=== PATIENT | female | born 1950 | race Caucasian/White ===

== ENCOUNTER → 2024-05-11 | Outpatient (CLI) | payer MEDICARE, OTHER, SELFPAY ==
--- NOTE | 2024-05-11 14:40 | CT_ITS ---
PROCEDURE: EXTREMITY LOWER WITHOUT CONTRA REASON FOR EXAM: [facility] protocol for templating for right total-knee arthroplasty. TECHNIQUE: Multiple axial tomographic images of the right hip joint, right knee joint and right ankle joints were obtained. Coronal and sagittal reconstruction was obtained as well. COMPARISON: None. FINDINGS: Bones: No evidence of fracture. Joints: Imaging of the right hip joint was obtained. Moderate degree of joint space narrowing especially along the superior posterior aspect of the hip joint. Imaging of the knee joint was obtained. Marked degree of joint space narrowing involving the medial compartment of the knee joint. Degenerative spondylosis seen along the medial and lateral femoral condyles as well as medial and lateral tibial plateaus. Marked degree of joint space narrowing and osteoarthritis of the patellofemoral joint with degenerative spur formation. Imaging of the ankle joint was performed. No abnormality is seen. Soft Tissues: Small knee joint effusion. CT/Extremity Lower without Contra IMPRESSION: Marked degree of joint space narrowing involving the medial compartment of the knee joint as well as the patellofemoral joint. Small joint effusion. One or more dose reduction techniques were used (e.g., Automated exposure contr ol, adjustment of the mA and/or kV according to patient size, use of iterative reconstruction technique). Reading Location: [facility]
== END | disposition home or self-care (01) ==
LOC: CT 14:31
PROVIDERS: Referring Provider Orthopaedic Surgery; Visit Provider Orthopaedic Surgery
DX: M17.11 Unilateral primary osteoarthritis, right knee (principal)
CPT/HCPCS: 73700

== ENCOUNTER 2024-05-26 13:29 | Inpatient (IN) | payer MEDICARE, OTHER, SELFPAY ==
--- NOTE | 2024-05-12 18:11 | PAT.ANESEVAL ---
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 When Was Last Pacemaker Check QUESTION #4 FULL TEXT: You/Your Family Experience fever (hyperthermia) with Anesthesia Last Oral Intake Last Oral intake: Last Oral Intake NPO since Meds taken in AM with sips of water? 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 specialist: PONV - green promotions specialist Female Yes 05/12/24 08:08 HX of Motion Sickness No 05/12/24 08:08 HX of N/V After Surgery No 05/12/24 08:08 Non-Smoker Yes 05/12/24 08:08 Duration of Surgery greater Yes 05/12/24 08:08 than 60 minutes Number of Risk Factors 3 05/12/24 08:08 PONV Score Moderate Risk 05/12/24 08:08 Height & Weight Height & Weight: Anesthesia: Height & Weight Height 5 ft 7 in 04/06/24 08:50 Respiratory Assessment Respiratory Assessment - green promotions specialist: Respiratory Tract Infection Hx - green promotions specialist Hx Respiratory Tract Infection No 05/12/24 08:08 STOP Sleep Apnea STOP Sleep Apnea - green promotions specialist: STOP Sleep Apnea - green promotions specialist Hx Hypertension Yes: PER PT, CONTROLLED ON 05/12/24 08:08 MEDS Hx Sleep Apnea No 05/12/24 08:08 CPAP BIPAP Do you snore loudly (louder Yes 05/12/24 08:08 than talking or can be heard Do you often feel tired/ No 05/12/24 08:08 fatigued/ sleepy during daytime? Has anyone observed you stop No 05/12/24 08:08 breathing during sleep? STOP Results Positive 05/12/24 08:08 QUESTION #5 FULL TEXT : Do you snore loudly (louder than talking or can be heard through closed doors)? 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 Specify any problems Hx of Preganancy in last 3 No 05/12/24 08:08 Months Nurse Filling Out Transfusion MGRIFFITH 05/12/24 08:08 & Questions: Date: 05/12/24 05/12/24 08:08 Time: 08:10 05/12/24 08:08 Patient unable to answer at this time (ie. 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 History - green promotions specialist: /Reproductive Hx- green promotions specialist Hx Now Gestational Age (in weeks): EDC: Hx Hx Para Hx Section SAB PFSH Medical History (Updated 05/12/24 @ 08:20 by Christina Barrios) Wears glasses Wears partial dentures Depression Anxiety Alcohol use History of steroid therapy Dietary restriction Former smoker History of echocardiogram HTN (hypertension) Hypercholesteremia Diabetes mellitus CLL (chronic lymphocytic leukemia) Home Medications ?Medication ?Instructions ?Recorded ?Last Taken ?Type alprazolam 0.25 mg tablet (Xanax) 0.25 mg PO BID ANXIETY 04/06/24 Unknown History bupropion HCl 300 mg 24 hr tablet, 300 mg PO QAM MOOD 04/06/24 Unknown History extended release celecoxib 200 mg capsule (Celebrex) 200 mg PO QDAY ANTIINFLAMATORY 04/06/24 Unknown History cholecalciferol (vitamin D3) 25 25 mcg PO QDAY SUPPELEMENT 04/06/24 Unknown History mcg (1,000 unit) capsule cyanocobalamin (vitamin B-12) 100 mcg IM QMONTH SUPPLEMENT 04/06/24 Unknown History 1,000 mcg/mL injection solution empagliflozin 10 mg tablet 10 mg PO QAM DIABETES 04/06/24 Unknown History (Jardiance) hydrochlorothiazide 12.5 mg capsule 12.5 mg PO QDAY BLD PRESSURE 04/06/24 Unknown History lisinopril 40 mg tablet 40 mg PO QDAY BLOOD PRESSURE 04/06/24 Unknown History paroxetine HCl 40 mg tablet 40 mg PO QDAY MOOD 04/06/24 Unknown History semaglutide 0.25 mg or 0.5 mg (2 0.5 mg subcut WE DIABETES 04/06/24 Unknown History mg/3 mL) subcutaneous pen injector (Ozempic) atorvastatin 80 mg tablet 80 mg PO DAILY CHOLESTEROL 05/12/24 Unknown History Allergy/AdvReac Type Severity Reaction Status Date / Time No Known Allergies Allergy Verified 05/12/24 08:01 Surgical History (Updated 05/12/24 @ 08:08 by Christina Barrios) History of tonsillectomy History of colonoscopy History of tubal ligation S/P complete hysterectomy History of right shoulder replacement Social History Smoking Status: Former smoker alcohol intake: never Audit: Pertinent Findings Current Visit Impressions Current Visit Impressions: Hold Jardiance and ozempic as per guidelines. Recommendation Anesthesia Recommendation Anesthesia recommendation: F/U recommended (I do not see any outside records. I looked but there is no PAT Scanned Documents or Pre-Anesthesia Evaluation with scanned documents. )
--- NOTE | 2024-05-14 11:03 | EKG12_ITS ---
Test Reason : PREOP Blood Pressure : */* mmHG Vent. Rate : 72 BPM Atrial Rate : 72 BPM P-R Int : 140 ms QRS Dur : 120 ms QT Int : 432 ms P-R-T Axes : 32 -38 84 degrees QTcB Int : 473 ms Sinus rhythm with occasional Premature ventricular complexes Left axis deviation Right bundle branch block Abnormal ECG Confirmed by DEEPIKA OSBORNE, CASSY ([id number]), food editor ANTONIO ANGELES ([id number]) on 05/18/2024 11:31:29 AM Referred By: Luisito Howell Confirmed By: CASSY POE MD
[2024-05-14 11:19] LABS: Absolute Lymphocyte Count 3.37 X10^3/uL (0.83-4.51); Absolute Neutrophil Count 6.3 X10^3/uL (2.0-7.7); Basophil# 0.06 X10^3/uL; Basophil% 0.6 % (0-1); Eosinophil# 0.12 X10^3/uL; Eosinophils% 1.1 % (0-5); Hematocrit 42.9 % (37-47); Hemoglobin 14.9 g/dL (12.0-15.0); Lymphocyte # 3.37 X10^3/ul (0.83-4.51); Lymphocyte % 31.3 % (19-41); Mean Corp Hgb Conc 34.7 g/dL (32-36); Mean Corpuscular Hgb 29.7 pg (27.0-32.0); Mean Corpuscular Volume 85.5 fL (81-99); Mean Platelet Vol. 9.5 fl (6.2-12.0); Monocyte# 0.84 X10^3/uL; Monocyte% 7.8 % (0-10); NRBC Flagged by Analyzer 0 % (0-5); Neutrophil # 6.33 X10^3/uL (2.7-7.7); Neutrophil % 58.9 % (47-70); Platelet Count 167 K/mm3 (150-450); RBC Distribution Width CV 13.2 % (11.6-14.6); RBC Distribution Width SD 41.1 fl (35.1-43.9); Red Blood Count 5.02 M/mm3 (4.2-5.4); White Blood Count 10.8 K/mm3 (4.4-11.0)
[2024-05-14 11:33] LABS: Prothrombin Time (Protime)PT. 12.8 SECONDS (11.7-14.9)
[2024-05-14 11:34] LABS: Partial Thromboplast Time 24.4 Seconds (24.1-36.2)
--- NOTE | 2024-05-14 11:52 | PAT.ANE_ITS ---
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 When Was Last Pacemaker Check QUESTION #4 FULL TEXT: You/Your Family Experience fever (hyperthermia) with Anesthesia Last Oral Intake Last Oral intake: Last Oral Intake NPO since Meds taken in AM with sips of water? 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 Female Yes 05/12/24 08:08 HX of Motion Sickness No 05/12/24 08:08 HX of N/V After Surgery No 05/12/24 08:08 Non-Smoker Yes 05/12/24 08:08 Duration of Surgery greater Yes 05/12/24 08:08 than 60 minutes Number of Risk Factors 3 05/12/24 08:08 PONV Score Moderate Risk 05/12/24 08:08 Height & Weight Height & Weight: Anesthesia: Height & Weight Height 5 ft 7 in 04/06/24 08:50 Respiratory Assessment Respiratory Assessment - production shift supervisor: Respiratory Tract Infection Hx - production shift supervisor Hx Respiratory Tract Infection No 05/12/24 08:08 STOP Sleep Apnea STOP Sleep Apnea - production shift supervisor: STOP Sleep Apnea - production shift supervisor Hx Hypertension Yes: PER PT, CONTROLLED ON 05/12/24 08:08 MEDS Hx Sleep Apnea No 05/12/24 08:08 CPAP BIPAP Do you snore loudly (louder Yes 05/12/24 08:08 than talking or can be heard Do you often feel tired/ No 05/12/24 08:08 fatigued/ sleepy during daytime? Has anyone observed you stop No 05/12/24 08:08 breathing during sleep? STOP Results Positive 05/12/24 08:08 QUESTION #5 FULL TEXT : Do you snore loudly (louder than talking or can be heard through closed doors)? 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 supervisor: Tobacco Use History - production shift supervisor Tobacco Use Smoking Status Former smoker 05/12/24 08:08 Hx Tobacco Use No 05/12/24 08:08 Years Smoking Packs Smoked per Day Smoking Cessation Date was No - quit smoking greater 05/12/24 08:08 within the last 15 years than 15 years ago Hx Smoking Cessation Date Hx Smoking Cessation Counseling Hematologic Medial History Hematologic Hx - production shift supervisor: Hematologic Medical Hx - rheumatologist Hx of Blood Transfusion No 05/12/24 08:08 Hx of Transfusion in last 3 No 05/12/24 08:08 Months Date of Last Transfusion (if within last 3 months) Ever experience any problems No 05/12/24 08:08 with transfusion(s)? Specify any problems Hx of Preganancy in last 3 No 05/12/24 08:08 Months Nurse Filling Out Transfusion MGRIFFITH 05/12/24 08:08 & Questions: Date: 05/12/24 05/12/24 08:08 Time: 08:10 05/12/24 08:08 Patient unable to answer at this time (ie. 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 Hx Now Gestational Age (in weeks): EDC: Hx Hx Para Hx Section SAB PFSH Medical History (Updated 05/12/24 @ 08:20 by Christina Barrios) Wears glasses Wears partial dentures Depression Anxiety Alcohol use History of steroid therapy Dietary restriction Former smoker History of echocardiogram HTN (hypertension) Hypercholesteremia Diabetes mellitus CLL (chronic lymphocytic leukemia) Home Medications ?Medication ?Instructions ?Recorded ?Last Taken ?Type alprazolam 0.25 mg tablet (Xanax) 0.25 mg PO BID ANXIE TY 04/06/24 Unknown History bupropion HCl 300 mg 24 hr tablet, 300 mg PO QAM MOOD 04/06/24 Unknown History extended release celecoxib 200 mg capsule (Celebrex) 200 mg PO QDAY ANT IINFLAMATORY 04/06/24 Unknown History cholecalciferol (vitamin D3) 25 25 mcg PO QDAY SUPPELE MENT 04/06/24 Unknown History mcg (1,000 unit) capsule cyanocobalamin (vitamin B-12) 100 mcg IM QMONTH SUPPLE MENT 04/06/24 Unknown History 1,000 mcg/mL injection solution empagliflozin 10 mg tablet 10 mg PO QAM DIABETES 04/06 Unknown History (Jardiance) hydrochlorothiazide 12.5 mg capsule 12.5 mg PO QDAY BL D PRESSURE 04/06/24 Unknown History lisinopril 40 mg tablet 40 mg PO QDAY BLOOD PRESSURE 04/06/24 Unknown History paroxetine HCl 40 mg tablet 40 mg PO QDAY MOOD 5 Unknown History semaglutide 0.25 mg or 0.5 mg (2 0.5 mg subcut WE DIAB ETES 04/06/24 Unknown History mg/3 mL) subcutaneous pen injector (Ozempic) atorvastatin 80 mg tablet 80 mg PO DAILY CHOLESTEROL 0 05/12/24 Unknown History Allergy/AdvReac Type Severity Reaction Status Date / Time No Known Allergies Allergy Verified 05/12/24 08:01 Surgical History (Updated 05/12/24 @ 08:08 by Christina Barrios) History of tonsillectomy History of colonoscopy History of tubal ligation S/P complete hysterectomy History of right shoulder replacement Social History Smoking Status: Never smoker alcohol intake: never Audit: Pertinent Findings Pertinent Findings EKG Perinent findings: Sinus rhythm with occasional Premature ventricular complexes Left axis deviation Right bundle branch block Abnormal ECG No previous ECGs available Echo (EF%) pertinent findings: EF 60-65%, grade 1 diastolic dysfunction Recommendation Anesthesia Recommendation Anesthesia recommendation: OPTIMIZED for anesthesia (Assuming ozempic and jardiance is held appropriately. )
[2024-05-14 11:58] LABS: Anion Gap 14 (5-15); BUN 11 mg/dL (4-19); BUN/Creat Ratio 12.6 RATIO (10-20); Carbon Dioxide 25.3 mmol/L (21.0-32.0); Chloride 101 mmol/L (98-108); Creatinine, Serum 0.85 mg/dL (0.70-1.20); EST Glomerular Filtration Rate 72 (>60); Glucose 206 mg/dL (70-99); Potassium 3.7 mmol/L (3.3-5.1); Sodium Level 140 mmol/L (133-145)
[2024-05-14 12:23] LABS: Hemoglobin A1c 6.8 % (<=5.6)
[2024-05-14 12:49] LABS: Magnesium 2.1 mg/dL (1.5-2.2)
[2024-05-15 05:07] LABS: Fructosamine 268 umol/L (0-285)
[2024-05-26] VITALS (13 sets, daily range): BP systolic 101–157; BP diastolic 49–84; PULSE 69–87; RESP 15–18; TEMP 36.2–37; O2SAT 93–99; BMI 29.0
[2024-05-26] MEDS: Celecoxib 200 MG Capsule 400 MG PO (09:34)
[2024-05-26] MEDS: Scopolamine 1mg/72hr Patch 1 PATCH TD (09:34)
[2024-05-26] MEDS: Gabapentin 600 MG Tablet PO (09:35)
[2024-05-26] MEDS: Magnesium 1 GM over 15 mins IV (09:35)
[2024-05-26] MEDS: Acetaminophen 500 MG Tablet 1000 MG PO ×2 (09:35→21:13)
[2024-05-26] MEDS: Lactated Ringers 1,000 ML 15 ML IV (09:39)
[2024-05-26 10:11] LABS: Bedside Glucose 170 mg/dL (74-106)
--- NOTE | 2024-05-26 10:19 | PCM.PRE.AN2 ---
ASA Classification* ASA Classification ASA Classification: 3 Assessment & Plan Anesthesia* Anesthesia Assessment Anesthesia Assessment: Discussed sedation and/or anesthesia options, risks, benefits, and alternatives with patient/parents/legal guardian/POA. Questions invited. The patient/parents/legal guardian/POA seems to understand and agrees to proceed with anesthesia plan. Reviewed the physical assessment, medical history, allergy history and patient home medications list prior to surgery/procedure/anesthetic and documented any changes. Performed airway and anesthesia risk assessments. Anesthesia Type Anesthesia Type: Spinal History Source History Obtained from:: Patient and Chart Anesthesia Focused Assessment* Temperature: 97.3 F Pulse Rate: 69 Blood Pressure: 152/70 Respiratory Rate: 16 Pulse Ox: 99 Oxygen Delivery Method: Room Air Airway Assessment Mouth opens: >3 cm Mallampati Score: IV Teeth Condition: Caps/Crowns (Patient has several crowns. They are all tight.) and Partial (Upper partial is out.) Neck Range of motion (ROM): Full ROM Focused Labs Anesthesia Preop lab: CBC WBC 10.8 K/mm3 (4.4-11.0) 05/14/24 10:49 05/14/24 RBC 5.02 M/mm3 (4.2-5.4) 05/14/24 10:49 05/14/24 Hgb 14.9 g/dL (12.0-15.0) 05/14/24 10:49 05/14/24 Hct 42.9 % (37-47) 05/14/24 10:49 05/14/24 Plt Count 167 K/mm3 (150-450) 05/14/24 10:49 05/14/24 CHEMISTRY Potassium 3.7 mmol/L (3.3-5.1) 05/14/24 10:49 05/14/24 Sodium 140 mmol/L (133-145) 05/14/24 10:49 05/14/24 Magnesium 2.1 mg/dL (1.5-2.2) 05/14/24 10:48 05/14/24 BUN 11 mg/dL (4-19) 05/14/24 10:49 05/14/24 Creatinine 0.85 mg/dL (0.70-1.20) 05/14/24 10:49 05/14/24 Glucose 206 mg/dL (70-99) H 05/14/24 10:49 05/14/24 POC Glucose 170 mg/dL (74-106) H 05/26/24 09:38 05/26/24 COAG PT 12.8 SECONDS (11.7-14.9) 05/14/24 10:49 05/14/24 Pre-Assessment Diagnosis/Proposed Procedure Planned Operative Procedure(s): (R) ERAS, Right Total Knee Replacement Robotic Arm Assisted Anesthesia History 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 When Was Last Pacemaker Check QUESTION #4 FULL TEXT: You/Your Family Experience fever (hyperthermia) with Anesthesia Last Oral Intake Last Oral intake: Last Oral Intake NPO since 07:30 05/26/24 09:40 Meds taken in AM with sips of Yes 05/26/24 09:40 water? Meds patient instructed to take am of surgery Any additional information?: Yes NPO since: 07:30 (patient took her preop Ensure at 7:30 AM.) PONV PONV - spreader operator: PONV - spreader operator Female Yes 05/12/24 08:08 HX of Motion Sickness No 05/12/24 08:08 HX of N/V After Surgery No 05/12/24 08:08 Non-Smoker Yes 05/12/24 08:08 Duration of Surgery greater Yes 05/12/24 08:08 than 60 minutes Number of Risk Factors 3 05/12/24 08:08 PONV Score Moderate Risk 05/12/24 08:08 Height & Weight Height & Weight: Anesthesia: Height & Weight Height 5 ft 7 in 05/26/24 09:40 Weight: 84 kg 05/26/24 09:40 Body Mass Index (BMI) 29.0 05/26/24 09:40 Respiratory Assessment Respiratory Assessment - spreader operator: Respiratory Tract Infection Hx - spreader operator Hx Respiratory Tract Infection No 05/12/24 08:08 STOP Sleep Apnea STOP Sleep Apnea - spreader operator: STOP Sleep Apnea - spreader operator Hx Hypertension Yes: PER PT, CONTROLLED ON 05/12/24 08:08 MEDS Hx Sleep Apnea No 05/12/24 08:08 CPAP BIPAP Do you snore loudly (louder Yes 05/12/24 08:08 than talking or can be heard Do you often feel tired/ No 05/12/24 08:08 fatigued/ sleepy during daytime? Has anyone observed you stop No 05/12/24 08:08 breathing during sleep? STOP Results Positive 05/12/24 08:08 QUESTION #5 FULL TEXT : Do you snore loudly (louder than talking or can be heard through closed doors)? 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 Specify any problems Hx of Preganancy in last 3 No 05/12/24 08:08 Months Nurse Filling Out Transfusion MGRIFFITH 05/12/24 08:08 & Questions: Date: 05/12/24 05/12/24 08:08 Time: 08:10 05/12/24 08:08 Patient unable to answer at this time (ie. 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: /Reproductive Hx- spreader operator Hx Now Gestational Age (in weeks): EDC: Hx Hx Para Hx Section SAB Active Medications Active Medications: Current Medications Generic Name Dose Route Start Last Admin Trade Name Freq PRN Reason Stop Dose Admin Lactated Ringer's 1,000 mls @ 125 mls/hr 05/26/24 08:15 IV 05/26/24 16:14 .Q8H CHELSY Lactated Ringer's 1,000 mls @ 15 mls/hr 05/26/24 09:45 05/26/24 09:39 IV 15 mls/hr .Q48H CHELSY Administration Insulin Human Lispro 1 - 6 unit 05/26/24 08:15 Insulin Lispro 100 Unit/Ml Insuln.Pen SC Q4H PRN PRN BG>/= 180, SEE PROTOCOL Protocol PFSH Medical History Wears glasses Wears partial dentures Depression Anxiety Alcohol use History of steroid therapy Dietary restriction Former smoker History of echocardiogram HTN (hypertension) Hypercholesteremia Diabetes mellitus CLL (chronic lymphocytic leukemia) Home Medications ?Medication ?Instructions ?Recorded ?Last Taken ?Type alprazolam 0.25 mg tablet (Xanax) 0.25 mg PO BID ANXIETY 04/06/24 Unknown History bupropion HCl 300 mg 24 hr tablet, 300 mg PO QAM MOOD 04/06/24 05/25/24 History extended release celecoxib 200 mg capsule (Celebrex) 200 mg PO QDAY ANTIINFLAMATORY 04/06/24 Unknown History cholecalciferol (vitamin D3) 25 25 mcg PO QDAY SUPPELEMENT 04/06/24 Unknown History mcg (1,000 unit) capsule cyanocobalamin (vitamin B-12) 100 mcg IM QMONTH SUPPLEMENT 04/06/24 05/15/24 History 1,000 mcg/mL injection solution empagliflozin 10 mg tablet 10 mg PO QAM DIABETES 04/06/24 05/22/24 History (Jardiance) hydrochlorothiazide 12.5 mg capsule 12.5 mg PO QDAY BLD PRESSURE 04/06/24 05/25/24 History lisinopril 40 mg tablet 40 mg PO QDAY BLOOD PRESSURE 04/06/24 05/25/24 History paroxetine HCl 40 mg tablet 40 mg PO QDAY MOOD 04/06/24 05/25/24 History semaglutide 0.25 mg or 0.5 mg (2 0.5 mg subcut WE DIABETES 04/06/24 05/13/24 History mg/3 mL) subcutaneous pen injector (Ozempic) atorvastatin 80 mg tablet 80 mg PO DAILY CHOLESTEROL 05/12/24 05/25/24 History Allergy/AdvReac Type Severity Reaction Status Date / Time No Known Allergies Allergy Verified 05/26/24 09:26 Surgical History History of tonsillectomy History of colonoscopy History of tubal ligation S/P complete hysterectomy History of right shoulder replacement Social History Smoking Status: Never smoker alcohol intake: never Review of Systems (Anesthesia) ROS Narrative System reviewed and no additional complaints, except as documented.
--- NOTE | 2024-05-26 10:26 | HP.PCM_ITS ---
History and Physical Date of Admission: 05/26/24 [facility] [address] [place] [address] OFFICE VISIT Date of Service: 04/08/24 MR#: [id number] Acct: [id number] Name: MARTIN CARMONA Rep #: [id number] : 1950 Provider: Dr. Luisito Howell, Age/Sex: 74/F [place] [facility] [place] Status: Signed Intake Vital Signs 04/06/2507:50 Height 5 ft 7 in Weight: 187 lb BMI 29.2 Intake Visit Reasons: RIGHT KNEE Allergies No Known Allergies Allergy (Unverified 04/08/24 14:59) Medications ?Medication ?Instructions ?Recorded ?Confirmed ?Type alprazolam 0.25 mg tablet (Xanax) 0.25 mg PO BID 04/06/24 04/08/24 History bupropion HCl 300 mg 24 hr tablet, 300 mg PO QAM 04/06/24 04/08/24 History extended release celecoxib 200 mg capsule (Celebrex) 200 mg PO QDAY 04/06/24 04/08/24 History cholecalciferol (vitamin D3) 25 25 mcg PO QDAY 04/06/24 04/08/24 History mcg (1,000 unit) capsule cyanocobalamin (vitamin B-12) 100 mcg IM QMONTH 04/06/24 04/08/24 Hist ory 1,000 mcg/mL injection solution empagliflozin 10 mg tablet 10 mg PO QAM 04/06/24 04/08/24 History (Jardiance) hydrochlorothiazide 12.5 mg capsule 12.5 mg PO QDAY 04/06/24 04/08/24 Histor y lisinopril 40 mg tablet 40 mg PO QDAY 04/06/24 04/08/24 History paroxetine HCl 40 mg tablet 40 mg PO QDAY 04/06/24 04/08/24 History semaglutide 0.25 mg or 0.5 mg (2 0.25 mg subcut QWEEK 04/06/24 04/08/24 H istory mg/3 mL) subcutaneous pen injector (Ozempic) Have you fallen in the past year?: No [facility] Medical History (Updated 04/08/24 @ 15:[address] Luisito Howell, ) HTN (hypertension) Hypercholesteremia Diabetes mellitus CLL (chronic lymphocytic leukemia) Surgical History S/P complete hysterectomy History of right shoulder replacement Social History Smoking Status: Never smoker alcohol intake: never HPI RIGHT KNEE Details: This documentation accurately reflects the service provided and the decisions made by me, Dr. Luisito Howell DO 04/08/24 0816. Part of today?s visit was documented by Blanche CLARK, acting as scribe. MARTIN CARMONA is a 74 year old F here today for right knee pain. She states that she has been having pain since her 40's and it is getting progressively worse within the last year. She has previously seen [facility] and was supposed have the knee replaced but was unable to due to high blood pressure. She states that her pain is over the whole knee and it radiates into the hip and down into her foot. She did have gel injection may years ago which did last her awhile. She used to be an avid runner. She has previously had a steroid injection many years ago as well. She take Celebrex 200mg daily and if she needs it she take Tylenol that had Aleve in it. She also has a cannabis cream that she uses on the knee as well. She states that prolonged walking, steps, uneven ground and walking up hills all increase her pain but navigating steps would be the worst. She would like to discuss knee replacement. Ortho Exam General General: Yes no acute distress Neurologic: Yes alert and Yes oriented x3 Psychologic: Yes reasonable and appropriate Right Knee Skin/Wound: No erythema, No ecchymosis and No swelling Homans Sign: No Knee ROM: Yes ROM-Extension -20 to 0 (-6) and Yes ROM-Flexion 0-140 (120) Examination: Yes Med jt line tenderness, Yes Lat jt line tenderness and Yes Crepitus Stability: NML: Anterior Drawer, NML: Lyndon, NML: Valgus 0, NML: Valgus 30, NML: Varus 0 and NML: Varus 30 KNEE: fixed varus deformity No gross motor or sensory deficits intact sensation light touch palpable pedal pulse Head: Normocephalic Atraumatic Chest: symmetrical rise, non-labored breathing, no audible wheeze Abdomen: no guarding, non-rigid Supplemental Info 04/08/2024 right knee x-ray: End-stage knee arthrosis varus deformity lateral subluxation of tibia 04/06/2024 x-ray left hip: There is faint spurring of the inferior femoral head o therwise relatively preserved joint space no acute findings, of note there is degenerative changes noted of the lower lumbar spine Coding Level of Care Code Off vis,est,level 4 Diagnoses Primary osteoarthritis of right knee M17.11 Osteoarthritis type: primary Assessment and Plan Assessment and Plan (1) Right knee DJD: Status: Acute Qualifiers: Osteoarthritis type: primary Qualified Code(s): M17.11 - Unilateral primary osteoarthritis, right knee Orders: Orders Knee 4 or More Views Today M25.561 - Pain in right knee Plan Patient is here today for right knee pain. I obtained and reviewed xrays today with patient and advised her that she does have advanced arthritis in the knee along with subluxation of her tibia and a varus deformity. I did explain to patient that the knee replacement would not take away the burning pain that she has or radiating pain past mid leg or proximal to mid thigh. I explained to patient that the burning pain would be coming from her back and I would recommend see Dr. Ge our sine surgeon for her back for further evaluation. I would like patient to get her broken tooth that she has fixed prior to having a knee replacement to help prevent future risk for an infection. Reviewed the pre- operative plans with the patient. Risks and benefits of the procedure were fully explained, including but not limited to infection, neurovascular injury, continued pain, arthritis, stiffness, need for further surgery, re-injury, DVT, PE, general risks of anesthesia, and loss of limb or life. The patient understands all the risks and does wish to proceed with written consent. I advised patient that prior to surgery we would need to get a CT scan for templating for the surgery. I also recommend patient have the Iovera procedure done prior to surgery if her insurance covers it, if her insurance doesn't cover the procedure she does not have to have it done. She does have two steps to get into her home. She has had a recent A1C about 4 months ago that she states was around 6 but she does have a follow-up next week with her doctor. Patient would like to be inpatient after surgery secondary to her age and her history of HBP. Patient would like us to send an order to [facility] for pre-rehab for before surgery. Tentative surgery date May 26, 2024 admission. She is diabetic I did explain her A1c needs to be less than 7 Follow up at 2 weeks post-op or sooner if pain, swelling, numbness or associated symptoms, or concerns develop. All questions answered. Patient in agreement of plan. Clinical Quality Measures Falls Risk Screening/Assistive Devices Have you fallen in the past year?: No 04/08/24 1557 <Electronically signed by Luisito Howell DO> Date Luisito Howell DO I have examined the patient and the H&P has been reviewed. There are no clinical changes since date of exam.
[2024-05-26] MEDS: Cefazolin 2 GM in Syringe 10 ML IV (11:14)
--- NOTE | 2024-05-26 11:15 | KNEE_PTH ---
PATIENT: MARTIN CARMONA LOC: MS3 U#:[id number] AGE/SX: 74/F [place] [facility] [place]: Dr. Luisito Howell DO : 1950 BED: 1 DIS: 05/27/2024 SPEC #: [id number] RECD: 05/27/24 09:10 STATUS: QUETA MENG #: [id number] KINGA: 05/26/24 11:[address]: Luisito Howell DEPT: SURGICAL PATHOLOGY RECD BY: Brooks Peña Tissues: A - Knee, NOS Procedures: Decalcification bone/plaque Surgery Specimen Level III HEADER OPERATION: ERAS, right total knee replacement robotic arm assist PRE-OP DIAGNOSIS: Right knee degenerative joint disease TISSUE SUBMITTED: A- Right knee bone and tissue MICROSCOPIC DIAGNOSIS A. RIGHT KNEE BONE, TOTAL KNEE ARTHROPLASTY: - ARTICULAR BONE WITH OSTEOARTHRITIC REACTIVE AND DEGENERATIVE CHANGES. MICROSCOPIC DESCRIPTION Slides are reviewed. GROSS DESCRIPTION A. Received in formalin labeledEvan Pamela, and designated right knee bone and tissue, are multiple irregularly-shaped, bone and fibrous tissue fragments that aggregate to 13.0 x 11.0 x 3.0 cm. The largest fragment is consistent with the tibial plateau. The cut surfaces of the fragments are ashley and trabecular. The articular surfaces are focally yellow-ahsley and smooth and otherwise yellow-brown with a granular texture. Sectioning shows yellow-brown, trabecular bone. The articular cartilage ranges from 0.1 to 0.4 cm thick. Color Print Inspector sections are submitted as follows:Cassette Summary:A1-human resources representative sections of smaller fragmentsA2-two human resources representative sections of two larger fragments(Submitted after decalcification) 05/27/2024 CPT:[id number]
[2024-05-26] MEDS: TXA 1000mg in NS100 100ml (IVPB at Incision) 660 MG IV (11:20)
[2024-05-26] MEDS: dexAMETHasone 10 MG/ML Vial IV (11:34)
[2024-05-26] MEDS: TXA 1000mg in NS100 100ml (IVPB at Closure) 660 MG IV (11:47)
[2024-05-26] MEDS: 0.9% Normal Saline (Pres. free 10 ML Vial (12:30)
[2024-05-26] MEDS: Epinephrine (1 mg/ml) 1 MG/ML VIAL (12:30)
[2024-05-26] MEDS: dexAMETHasone 4 MG/ML Vial (12:30)
[2024-05-26] MEDS: Bupivacaine 0.5% PF 10 ML VIAL (12:30)
[2024-05-26] MEDS: Lactated Ringers 1,000 ML 125 ML IV (13:55)
--- NOTE | 2024-05-26 13:55 | RAD_ITS ---
EXAM: XR Right Knee, 1 or 2 Views CLINICAL INDICATION: POST OP TECHNIQUE: Frontal and/or lateral views of the right knee. COMPARISON: No relevant prior studies available. FINDINGS: BONES/JOINTS: Total knee replacement. Intact hardware. No acute fracture. No dislocation. SOFT TISSUES: Soft tissue emphysema and swelling. RAD/Knee 1 or 2 Views IMPRESSION: Status post total knee replacement in anatomic position. Reading Location: [facility]
--- NOTE | 2024-05-26 13:56 | PCM.POST.ANE ---
Anesthesia: Postop Eval I Current Vital Signs Temperature: 97.5 F Pulse Rate: 87 Blood Pressure: 154/75 Respiratory Rate: 16 Pulse Ox: 94 Assessment Airway patent: Yes Spontaneous unlabored respirations: Yes nausea: No Vomiting: No Anesthesia Complication: No Fluid Hydration Crystalloid volume administer (ml): 1,400 Total IV fluid infused: 1,400 Progress Note Anesthesia document: Postop Eval 1 completed: Yes
[2024-05-26] MEDS: Ensure Surgery 237 ML LIQUID PO (17:04)
[2024-05-26] MEDS: Cefazolin 2 GM in Syringe IV (17:04)
[2024-05-26] MEDS: oxyCODONE 5 MG Tablet PO ×2 (17:04→21:13)
--- NOTE | 2024-05-26 19:32 | POSTOPAN2_ITS ---
Anesthesia Postop Eval I Sum Postop Eval Completion status Anesthesia document: Postop Eval 1 completed: Yes Anesthesia Postop Eval I Summary Anesthesia Postop Eval I Summary: Anesthesia Postop Eval I: Assessment Summary Airway patent Yes 05/26/24 13:56 COIL [email or web address] Spontaneous unlabored Yes 05/26/24 13:56 COIL [email or web address] respirations Mental status nausea No 05/26/24 13:56 COIL [email or web address] Vomiting No 05/26/24 13:56 COIL [email or web address] Anesthesia Postop Eval I: Fluid Summary Crystalloid volume administer 1,400 05/26/24 13:56 COIL [email or web address] (ml) Colloids volume administered ( ml) Blood Product volume administered (ml) Total IV fluid infused 1,400 05/26/24 13:56 COIL [email or web address] Anesthesia Postop Eval I: Summary Notes Anesthesia Complication No 05/26/24 13:56 COIL [email or web address] Anesthesia Complication Comment: Post-operative progress note Anesthesia: Postop Eval II Evaluation Mental status: Awake and Calm Pain Level: 2 nausea: No Vomiting: No Complications Anesthesia Complication: No
--- NOTE | 2024-05-26 19:32 | PCM.POSTANE2 ---
Anesthesia Postop Eval I Sum Postop Eval Completion status Anesthesia document: Postop Eval 1 completed: Yes Anesthesia Postop Eval I Summary Anesthesia Postop Eval I Summary: Anesthesia Postop Eval I: Assessment Summary Airway patent Yes 05/26/24 13:56 DIRECTOR [email or web address] Spontaneous unlabored Yes 05/26/24 13:56 DIRECTOR [email or web address] respirations Mental status nausea No 05/26/24 13:56 DIRECTOR [email or web address] Vomiting No 05/26/24 13:56 DIRECTOR [email or web address] Anesthesia Postop Eval I: Fluid Summary Crystalloid volume administer 1,400 05/26/24 13:56 DIRECTOR [email or web address] (ml) Colloids volume administered ( ml) Blood Product volume administered (ml) Total IV fluid infused 1,400 05/26/24 13:56 DIRECTOR [email or web address] Anesthesia Postop Eval I: Summary Notes Anesthesia Complication No 05/26/24 13:56 DIRECTOR [email or web address] Anesthesia Complication Comment: Post-operative progress note Anesthesia: Postop Eval II Evaluation Mental status: Awake and Calm Pain Level: 2 nausea: No Vomiting: No Complications Anesthesia Complication: No
[2024-05-26] MEDS: Senna/Docusate Sodium 1 Tablet 2 TABLET PO (21:13)
[2024-05-26] MEDS: ALPRAZolam 0.25 MG Tablet PO (21:14)
[2024-05-27] MEDS: Cefazolin 2 GM in Syringe IV ×2 (01:04→07:49)
[2024-05-27] MEDS: 0.9% Saline Lock 10 ML Syringe IV ×3 (01:05→07:50)
[2024-05-27] MEDS: Glycerin/Hypromellose/PEG400 15 ml Bottle 2 DRP EACH EYE (01:05)
[2024-05-27] MEDS: Ketorolac 15 MG/ML Vial IV (01:14)
[2024-05-27 01:22] VITALS: BP 137/60; PULSE 71; RESP 16; TEMP 36.5; O2SAT 95
[2024-05-27 04:12] LABS: Hematocrit 37.4 % (37-47); Hemoglobin 12.5 g/dL (12.0-15.0); Mean Corp Hgb Conc 33.4 g/dL (32-36); Mean Corpuscular Hgb 28.8 pg (27.0-32.0); Mean Corpuscular Volume 86.2 fL (81-99); Mean Platelet Vol. 9.5 fl (6.2-12.0); Platelet Count 217 K/mm3 (150-450); RBC Distribution Width CV 12.7 % (11.6-14.6); Red Blood Count 4.34 M/mm3 (4.2-5.4); White Blood Count 23.9 K/mm3 (4.4-11.0)
[2024-05-27 04:38] LABS: Scan Indicated on CBC? Y/N NO
[2024-05-27] MEDS: APIXABAN 2.5 MG TABLET (WCH) PO (06:23)
[2024-05-27] MEDS: oxyCODONE 5 MG Tablet PO (06:23)
[2024-05-27] MEDS: Acetaminophen 500 MG Tablet 1000 MG PO ×2 (06:23→13:47)
[2024-05-27 07:33] VITALS: BP 132/65; PULSE 66; RESP 16; TEMP 36.5; O2SAT 96
[2024-05-27 07:43] VITALS: BP 130/55; PULSE 63; RESP 12; TEMP 36.5; O2SAT 96
[2024-05-27] MEDS: Ensure Surgery 237 ML LIQUID PO ×2 (07:51→11:16)
[2024-05-27] MEDS: hydroCHLOROthiazide 12.5mg 12.5 MG PO (07:53)
[2024-05-27] MEDS: Senna/Docusate Sodium 1 Tablet 2 TABLET PO (07:53)
[2024-05-27] MEDS: Lisinopril 40 MG Tablet PO (07:54)
[2024-05-27] MEDS: buPROPion (XL) 300 MG TABLET.XL PO (07:54)
[2024-05-27] MEDS: Paroxetine 20 MG Tablet 40 MG PO (07:54)
[2024-05-27] MEDS: Atorvastatin Calcium 80 MG Tablet PO (07:54)
[2024-05-27] MEDS: Empagliflozin 10 MG Tablet PO (07:54)
[2024-05-27] MEDS: ALPRAZolam 0.25 MG Tablet PO (08:00)
--- NOTE | 2024-05-27 09:52 | OP.PCM_ITS ---
Operative Report (Standard) Operative Information Date of Procedure: 05/26/24 Pre-Operative Diagnosis: Right knee DJD Post-Operative Diagnosis: Same Surgery/Procedure Performed: Right total knee arthroplasty environmental services coordinator: Yes Test Technician: Mendez Wilson Tasks completed by first aid director: Opening Additional assistant program director?: No Type of Anesthesia: Spinal RN Documented Start/Stop Times: Operation Date: 05/26/24 11:15 Case Time Into Pre-Op 05/26/24 09:04 Anesthesia Start 05/26/24 11:14 Into Room 05/26/24 11:14 Procedure Start 05/26/24 11:35 Procedure End 05/26/24 13:34 Anesthesia End 05/26/24 13:42 Out of Room 05/26/24 13:42 Into Recovery 05/26/24 13:45 Out of Recovery 05/26/24 14:33 Procedure Start Time: 11:35 Procedure Stop Time: 13:34 Select all DRAINS/GRAFTS/IMPLANTS that apply: Prosthetic device (Tima) Prosthetic device details: Sipsey Estimated Blood Loss: 125 Specimen collected: Yes Description of specimen(s) removed: Bone and soft tissue Description of surgery: Preoperative diagnosis: Right knee DJD Postoperative diagnosis: Same Procedure: Right total knee arthroplasty CT guided Robotic Assisted Implant: Sipsey triathlon cemented, femoral component size 4, tibial baseplate size 4, asymmetric patella size 35, polyethylene X3 size 9 CS Anesthesia: Spinal with adductor canal block Tourniquet time: 16 minutes at 300 mmHg Complications: None Condition: Stable to PACU Estimated blood loss: 125 cc Manager Internal Mendez Wilson. My physician assistant program director was a vital part of this case. He was important in appropriate retraction during the case, and protection of soft tissues during procedure. His intimate knowledge of the case and my steps aided in safe and expedient completion of the procedure as well as appropriate position of the extremity during the case. He was also vital in assisting with closure under my direct supervision. Indication for procedure: This is a 74-year-old female with long standing degenerative joint disease of the knee who has failed conservative treatment and wished to proceed with elective total knee arthroplasty. Risk benefits and alternatives were reviewed including; risk of bleeding, infection, nerve artery and tissue damage, continued pain, postoperative stiffness, venous thromboembolism, need for postoperative rehabilitation, mechanical feel to the k nee, and expected postoperative course. The pre- operative CT and templating was performed with component sizing. Procedure: The patient was met in the preoperative holding area. The operative extremity was identified by both patient and physician and was marked. Patient was met by anesthesia. An adductor canal block was placed by anesthesia postoperatively the patient was brought back to the operating room on a wheeled cart and transferred to the operating table in the supine position. Anesthesia was started. A well-padded tourniquet was placed on the operative extremity. The patient was prepped and draped in the usual sterile fashion. A timeout was called to ensure the proper patient procedure and extremity were being contemplated. An esmarch was used to exsanguinate the extremity. The tourniquet was inflated. A 10 blade scalpel was used to make a midline incision down through the skin and subcutaneous tissue. Skin retractors placed. Bovie and Aquamantis were used to perform meticulous hemostasis. full-thickness flaps were elevated medial and lateral along the joint capsule. A deep blade scalpel was used to perform a medial parapatellar arthrotomy. The knee was brought to full extension. A bovie was used to release the soft tissues off the most proximal aspect of the medial tibial plateau, a three-quarter inch curved osteotome was also used in this process. The infrapatellar fat pad was excised. The suprapatellar fat pad was excised partially anteriorolateraly and portion the anterioromedial pad was elevated from the femur. At this point our intra-articular femoral array was placed at a 45 degree angle proximal and posterior to the medial epicondyle. femoral checkpoint was placed at this time. Our tibial array was placed Intra incisional pins were placed and attached to the tibial array , tibial checkpoint was placed in the proximal tibial metaphysis. Tourniquet was let down. At this point registration cagle were taken throughout the knee . Once the knee was registered we then tensioned the medial and lateral ligaments in extension and 90 degrees of flexion. We then used these numbers to adjust our components within parameters to balance the knee in both flexion and extension once this was done on our monitor we then proceeded with using the robotic arm to make our tibial plateau cut, anterior and posterior chamfer and distal femur cuts. we removed the cut fragments with the use of a bovie and Trip, we did use a lamina blood typer to insure we visualized and removed all posterior osteophytes and at this time also used the Aquamantis on the posterior joint capsule. we then trialed and achieved the desired plan with a well-balanced knee. we used the green probe to elizabeth the corresponding tibial rotation based on our CT template. Lug holes were drilled in the femur the tibia preparation was completed with the appropriate sized base plate pinned based on previous rotation elizabeth. An appropriate sized fin punch was used on the tibia and the patella was prepared by first using a caliper to ensure sufficient bone stock and a patellar reamer to remove the desired amount of bone. lug holes drilled for an asymmetric poly. We then brought the knee through range of motion with excellent patellar tracking. We thoroughly irrigated the knee. Trial components were removed a posterior capsular injection was preformed with our standard cocktail. In addition the aqua Mantis was also used to aid in hemostasis. Betadine rinse was allowed to sit and washed out completely. Components were cemented into place excess cement was removed with a [place] elevator. Aricept rinse was then used followed by several more liters of irrigation after it was allowed to sit. The joint capsule was closed with #1 Ethibond [id number] in the upper part of the arthrotomy and #1 Vicryl in the lower part of the arthrotomy. , Followed by 2-0 Vicryl in the subcutaneous tissues with flako in the skin. Arrays and checkpoints were removed prior to closure all counts were correct stab incisions were closed with a staple standard dressing in the form of Mepilex AG for the main incision and a small Mepilex over the pin holes. Thigh-high MLAIK hose applied over top of dressing. Patient tolerated the procedure well and was directed to PACU in stable condition . There were no intraoperative complications. Surgical Findings: Advanced DJD large osteophytes Complications Complications: No
--- NOTE | 2024-05-27 10:40 | CASEMGMT ---
Addendum entered by Aide Turner 05/27/24 14:10: TC to [facility], no cost for viri. Original Note: POPEYE WYATT Assessment: Face to Face with pt for initial transition planning/care coordination assessment. RN YOSELIN introduced self and role at [facility], pt voices understanding and consents to assessment. Pt is A&O x4 and answers all questions appropriately at this time. Pt sitting up in chair in no distress with dtr and family friend at bedside. Pt agreeable to assessment with visitors present. Care providers, pharmacy, and demographics verified/updated. Admitting Dx: R TKR Strata Score: 1 PCP:Analilia Church Specialists:Lynda, kristine; Branden heme onc Preferred Pharmacy: [facility] Pres[facility] Benefit: yes LNOK: Jr Gordon, dtr Living Arrangements: Pt lives with dtr in a single story home with 1 step to enter. Pt reports prior to surgery she was I in ADL/IADLs and denies concerns at home. Pt dtr is able to assist. Pt practiced step in therapy today per her report. Transportation: Pt drives self and denies concerns with transportation. Pt dtr will transport her until she can drive again. DME:lift chair, walk in shower with seat, crutches, w/c, FWW, polar care, adjustable bed, cane, BGM with sufficient test strips and supplies. HHC/SNF: Denies hx of Pt states no concerns with going home at time of dc. Pt states she has OP therapy set up at [facility] for Saturday at 3pm. Pt states no further concerns/needs. CM to follow. Advised pt to ask CM if any further questions/concerns/needs arise, voices understanding. Pt Goal:Home with outpt therapy Plan: Home with outpt therapy Maria NYE CM
--- NOTE | 2024-05-27 12:32 | PN.ORTHO_ITS ---
Subjective Subjective Seen and examined. Doing very well has already done stairs performing straight leg raises upon entering the room no complaints. Family at bedside she states she is ready to be discharged home Objective Data Objective Data Vital Signs: Vital Signs Temp Pulse Resp BP Pulse Ox O2 Del Method O2 Flow Rate 97.7 F L 63 12 130/55 H 96 Room Air 4 05/27/24 07:43 05/27/24 07:43 05/27/24 07:43 05/27/24 07:43 05/27/24 07:43 05/27/24 08:26 05/26/24 14:47 Oxygen Flow Rate (L/min) 4 Oxygen Delivery Method Room Air Weight: 185 lb 3.013 oz Body Mass Index (BMI) 29.0 Intake & Output: Intake and Output for Last 24 Hours 05/25/24 05/26/24 05/27/24 23:59 23:59 23:59 Intake Total 3020.33 / 3020.33 40 / 40 Balance 3020.33 / 3020.33 40 / 40 Lab / Micro Data 05/27/24 03:25 05/14/24 10:49 Labs: Laboratory Results - last 24 hr 05/27/24 03:25: WBC 23.9 H, RBC 4.34, Hgb 12.5, Hct 37.4, MCV 86.2, MCH 28.8, MCHC 33.4, RDW Std Deviation 39.0, RDW Coeff of Luz 12.7, Plt Count 217, MPV 9.5 Micro: Microbiology 05/14/24 10:49 Swab (Method) Nasal Screen MRSA/MSSA - Final Radiography Diagnostic Testing: Radiology Impression Knee X-Ray 05/26/24 13:55 IMPRESSION: Status post total knee replacement in anatomic position. Reading Location: [facility] Physical Exam Const alert, oriented x3 and no apparent distress Extremity Extremity Narrative: Right lower extremity dressing clean dry intact compartment soft neurovascular intact EHL tibialis anterior gastrocsoleus intact sensation light touch 2 out of 4 pedal pulse Assessment & Plan Assessment/Plan (1) S/P total knee arthroplasty: QUALIFIERS: Laterality: right Qualified Code(s): Z96.651 - Presence of right artificial knee joint PLAN: Plan Postop day #1 right total knee arthroplasty PT OT weightbearing as tolerated encourage full knee range of motion DVT prophylaxis SCDs MALIK blood Eliquis 2.5 mg twice daily for 2 weeks postop Patient is ready to be discharged home Discharge home Follow-up in 2 weeks Start outpatient physical therapy
--- NOTE | 2024-05-27 12:35 | PCM.DC ---
Discharge Instructions Diet Discharge Diet: No restrictions DC O2, CPAP, BIPAP needs Home O2 Discharge instructions: No Dressing / Incision Weight Bearing Status: Full weight bearing Dressing / Incision Call your doctor if you observe: Shortness of breath and Chest pain Additional Dressing/Incision Instructions:: Ice and elevate lower extremities 2 weeks while not ambulating. Ambulation is encouraged. Weight bearing as tolerated. Use assistive devise for stability. Encourage FULL knee extension and flexion 1 time EVERY time you get up and down and MULTIPLE times per day. No showering until 72 hours after surgery. May begin showering postop day #3. Remove the dressing prior to shower and gently wash with warm water and antibacterial soap then pat dry and place abdominal pad (or plain gauze) and MALIK hose over top. If you decide not to begin showering 72 hrs post operatively and wish to sponge bath only, then you may leave dressing undisturbed for up to 1 week, but must remove prior to first shower. Do not submerge for 3 weeks. If not showering daily after the initial dressing is removed you must clean incision and change dressing daily after the dressing comes off, must come off by 7 days postop. Do not allow animals near the incision area. Keep clean. Follow anti-coagulation recommendations as prescribed. Do not take any NSAIDs while on blood thinner. Do not take any additional narcotic pain medication other than what was prescribed on your surgery day without discussing with physician. Narcotic medication can be addictive. Do not drink alcohol while taking narcotics. Supplement narcotic prescription with acetaminophen 1000 mg 4 times a day. Start physical therapy. If you are not currently scheduled for physical therapy or you are unsure of appointment time please call office [facility] to arrange. Call Dr. Howell's office ) with any concerns. Follow Up Care Please Follow Up With: Luisito Howell DO When: 2 weeks Test Results: Test results from this visit will be discussed in further detail at your follow-up appointment, if applicable. Discharge Plan Admission Admit Date/Time: 05/26/24 13:29 Primary Reason for Your Visit: r TKA Attending Provider: Luisito Howell Primary Care Provider: YUN CHILDS Discharge Orders/Prescriptions Prescriptions: New acetaminophen 500 mg tablet 1,000 mg PO Q6H Qty: 100 0RF Eliquis 2.5 mg tablet 2.5 mg PO BID Qty: 28 0RF oxycodone 5 mg tablet 5 - 10 mg PO Q4H PRN (Reason: pain) 7 Days Qty: 60 0RF Continued hydrochlorothiazide 12.5 mg capsule 12.5 mg PO QDAY bupropion HCl 300 mg tablet extended release 24 hr 300 mg PO QAM paroxetine HCl 40 mg tablet 40 mg PO QDAY Jardiance 10 mg tablet 10 mg PO QAM Patient Comments: LAST DOSE TO BE 05/22 FOR SURGERY ON 05/26 lisinopril 40 mg tablet 40 mg PO QDAY Ozempic 0.25 mg or 0.5 mg (2 mg/3 mL) pen injector 0.5 mg subcut WE Patient Comments: LAST DOSE TO BE 05/13 FOR SURGERY ON 05/26 Rx Instructions: for 4 weeks alprazolam [Xanax] 0.25 mg tablet 0.25 mg PO BID cholecalciferol (vitamin D3) 25 mcg (1,000 unit) capsule 25 mcg PO QDAY cyanocobalamin (vitamin B-12) 1,000 mcg/mL solution 100 mcg IM QMONTH atorvastatin 80 mg tablet 80 mg PO DAILY Held celecoxib [Celebrex] 200 mg capsule 200 mg PO QDAY Hold Instructions: may resume after completion of Eliquis prn Other Ambulatory Orders: 12 Lead EKG (Routine) Timeframe: [id number] Location: None Selected Ordered By: Dr. Luisito Howell
--- NOTE | 2024-05-27 12:42 | PCM.DC.SUM ---
Providers Date of Admission: 05/26/24 Date of Discharge: 05/27/24 Primary Care Physician: YUN CHILDS Reason For Visit: ERAS, Right Total Knee Replacement Robotic Arm Ass Diagnosis Discharge Diagnosis (1) S/P total knee arthroplasty: Status: Acute Code(s): Z96.659 - Presence of unspecified artificial knee joint Qualifiers: Laterality: right Qualified Code(s): Z96.651 - Presence of right artificial knee joint Plan Postop day #1 right total knee arthroplasty PT OT weightbearing as tolerated encourage full knee range of motion DVT prophylaxis SCDs MALIK hose Eliquis 2.5 mg twice daily for 2 weeks postop Patient is ready to be discharged home Discharge home Follow-up in 2 weeks Start outpatient physical therapy Medications at Discharge Home Medications alprazolam 0.25 mg tablet (Xanax) 0.25 mg PO BID ANXIETY 04/06/24 bupropion HCl 300 mg 24 hr tablet, extended release 300 mg PO QAM MOOD 04/06/24 celecoxib 200 mg capsule (Celebrex) 200 mg PO QDAY ANTIINFLAMATORY 04/06/24 Held on 05/27/24. Instructions: may resume after completion of Eliquis prn cholecalciferol (vitamin D3) 25 mcg (1,000 unit) capsule 25 mcg PO QDAY SUPPELEMENT 04/06/24 cyanocobalamin (vitamin B-12) 1,000 mcg/mL injection solution 100 mcg IM QMONTH SUPPLEMENT 04/06/24 empagliflozin 10 mg tablet (Jardiance) 10 mg PO QAM DIABETES 04/06/24 hydrochlorothiazide 12.5 mg capsule 12.5 mg PO QDAY BLD PRESSURE 04/06/24 lisinopril 40 mg tablet 40 mg PO QDAY BLOOD PRESSURE 04/06/24 paroxetine HCl 40 mg tablet 40 mg PO QDAY MOOD 04/06/24 semaglutide 0.25 mg or 0.5 mg (2 mg/3 mL) subcutaneous pen injector (Ozempic) 0.5 mg subcut WE DIABETES 04/06/24 atorvastatin 80 mg tablet 80 mg PO DAILY CHOLESTEROL 05/12/24 acetaminophen 500 mg tablet 1,000 mg (2 x 500 mg) PO Q6H #100 tabs 05/27/24 apixaban 2.5 mg tablet (Eliquis) 2.5 mg PO BID #28 tabs 05/27/24 oxycodone 5 mg tablet 5 - 10 mg (1 - 2 x 5 mg) PO Q4H PRN pain 7 days #60 tabs 05/27/24 Hospital Course Operations total knee replacement Summary of Care Provided Hospital Course: Who has long history of degenerative joint disease to the knee who has failed conservative treatment and wished to undergo elective total knee arthroplasty. Patient underwent the aformentioned procedure on the admission date without any intraoperative complications. Patient did receive pre-and postoperative antibiotics which were discontinued within 23 hours postoperatively. Patient did receive spinal anesthesia as well as an adductor canal block postoperatively. pain was controlled with IV and transition to p.o. pain medication Patient will be discharged home with oxycodone and will continue Tylenol as well. Patient had minimal intraoperative blood loss and 2gm tranexamic acid was administered there was no need for postoperative blood transfusion Patients vital signs remained stable. Patient was started on both mechanical and chemical DVT per prophylaxis postoperatively in the form of SCDs MALIK hose and Eliquis 2.5 mg twice daily for which she will continue for 2 additional weeks post hospital discharge. thigh high malik hose placed over top of the meplix silver dressing. This should be removed 72 hrs post operatively and showering begun daily at that time with warm water and antibacterial soap. not to submerge for 3 weeks. To change dressing daily after first dressing change. Patient will follow-up in the office in 2 weeks. No intrahospital complications. Weight / BMI Weight Weight: 185 lb 3.013 oz Body Mass Index (BMI) 29.0 ABG / Lab / Microbiology Data 05/27/24 03:25 05/14/24 10:49 Laboratory: Laboratory Results - last 24 hr 05/27/24 03:25: WBC 23.9 H, RBC 4.34, Hgb 12.5, Hct 37.4, MCV 86.2, MCH 28.8, MCHC 33.4, RDW Std Deviation 39.0, RDW Coeff of Luz 12.7, Plt Count 217, MPV 9.5 Microbiology: Microbiology 05/14/24 10:49 Swab (Method) Nasal Screen MRSA/MSSA - Final Radiography Diagnostic Testing: Radiology Impression Knee X-Ray 05/26/24 13:55 IMPRESSION: Status post total knee replacement in anatomic position. Reading Location: [facility] D/C Instructions Discharge Diet: No restrictions Weight Bearing Status: Full weight bearing Call your doctor if you observe: Shortness of breath and Chest pain Additional Dressing/Incision Instructions: Ice and elevate lower extremities 2 weeks while not ambulating. Ambulation is encouraged. Weight bearing as tolerated. Use assistive devise for stability. Encourage FULL knee extension and flexion 1 time EVERY time you get up and down and MULTIPLE times per day. No showering until 72 hours after surgery. May begin showering postop day #3. Remove the dressing prior to shower and gently wash with warm water and antibacterial soap then pat dry and place abdominal pad (or plain gauze) and MALIK hose over top. If you decide not to begin showering 72 hrs post operatively and wish to sponge bath only, then you may leave dressing undisturbed for up to 1 week, but must remove prior to first shower. Do not submerge for 3 weeks. If not showering daily after the initial dressing is removed you must clean incision and change dressing daily after the dressing comes off, must come off by 7 days postop. Do not allow animals near the incision area. Keep clean. Follow anti-coagulation recommendations as prescribed. Do not take any NSAIDs while on blood thinner. Do not take any additional narcotic pain medication other than what was prescribed on your surgery day without discussing with physician. Narcotic medication can be addictive. Do not drink alcohol while taking narcotics. Supplement narcotic prescription with acetaminophen 1000 mg 4 times a day. Start physical therapy. If you are not currently scheduled for physical therapy or you are unsure of appointment time please call office [facility] to arrange. Call Dr. Howell's office ) with any concerns. DC O2, CPAP, BIPAP Needs Home O2 Discharge instructions: No Please Follow Up With: Luisito Howell DO When: 2 weeks Meaningful Use Info Meaningful Use Meaningful Use Diagnoses (Choose all that apply): None applicable Ischemic Stroke Statin Dosing Therapy Reference: STATIN DOSE THERAPY REFERENCE: * Patients > 75 years receive moderate or high dose statin therapy. * Patients 75 years or YOUNGER should receive HIGH intensity statin dose unless contraindicated. You will be required to document reason for non-treatment if statin daily dose does not meet guidelines. HIGH DOSE STATIN THERAPY DAILY Atorvastatin > than or = to 40 mg Rosuvastatin > than or = to 20 mg Amlodipine + Atorvastatin > than or = to 2.5/40 mg Ezetimibe + Simvastatin 10/80 mg Simvastatin 80mg Discharge Plan Admission Admit Date/Time: 05/26/24 13:29 Primary Reason for Your Visit: r TKA Attending Provider: Luisito Howell Primary Care Provider: YUN CHILDS Discharge Orders/Prescriptions Prescriptions: New acetaminophen 500 mg tablet 1,000 mg PO Q6H Qty: 100 0RF Eliquis 2.5 mg tablet 2.5 mg PO BID Qty: 28 0RF oxycodone 5 mg tablet 5 - 10 mg PO Q4H PRN (Reason: pain) 7 Days Qty: 60 0RF Continued hydrochlorothiazide 12.5 mg capsule 12.5 mg PO QDAY bupropion HCl 300 mg tablet extended release 24 hr 300 mg PO QAM paroxetine HCl 40 mg tablet 40 mg PO QDAY Jardiance 10 mg tablet 10 mg PO QAM Patient Comments: LAST DOSE TO BE 05/22 FOR SURGERY ON 05/26 lisinopril 40 mg tablet 40 mg PO QDAY Ozempic 0.25 mg or 0.5 mg (2 mg/3 mL) pen injector 0.5 mg subcut WE Patient Comments: LAST DOSE TO BE 05/13 FOR SURGERY ON 05/26 Rx Instructions: for 4 weeks alprazolam [Xanax] 0.25 mg tablet 0.25 mg PO BID cholecalciferol (vitamin D3) 25 mcg (1,000 unit) capsule 25 mcg PO QDAY cyanocobalamin (vitamin B-12) 1,000 mcg/mL solution 100 mcg IM QMONTH atorvastatin 80 mg tablet 80 mg PO DAILY Held celecoxib [Celebrex] 200 mg capsule 200 mg PO QDAY Hold Instructions: may resume after completion of Eliquis prn Other Ambulatory Orders: 12 Lead EKG (Routine) Timeframe: 20240514 Location: None Selected Ordered By: Dr. Luisito Howell Disposition Discharge Orders: Discharge Patient (Routine); Ordered 05/27/24 Ordered By: Dr. Luisito Howell
[2024-05-27 12:54] VITALS: BP 145/60; PULSE 71; RESP 14; TEMP 37.1; O2SAT 98
--- NOTE | 2024-05-27 15:38 | PHA.DC.MR.R ---
Pharmacy [place] Med Reconciliation Pharmacy Service has performed discharge medication reconciliation for this patient. Medication education papers prepared, patient discharged when counseling was attemped. Medications reviewed. The patient's discharge medication list was reviewed for discrepancies and discrepancies were resolved. Medications at Discharge Home Medications alprazolam 0.25 mg tablet (Xanax) 0.25 mg PO BID ANXIETY 04/06/24 bupropion HCl 300 mg 24 hr tablet, extended release 300 mg PO QAM MOOD 04/06/24 celecoxib 200 mg capsule (Celebrex) 200 mg PO QDAY ANTIINFLAMATORY 04/06/24 Held on 05/27/24. Instructions: may resume after completion of Eliquis prn cholecalciferol (vitamin D3) 25 mcg (1,000 unit) capsule 25 mcg PO QDAY SUPPELEMENT 04/06/24 cyanocobalamin (vitamin B-12) 1,000 mcg/mL injection solution 100 mcg IM QMONTH SUPPLEMENT 04/06/24 empagliflozin 10 mg tablet (Jardiance) 10 mg PO QAM DIABETES 04/06/24 hydrochlorothiazide 12.5 mg capsule 12.5 mg PO QDAY BLD PRESSURE 04/06/24 lisinopril 40 mg tablet 40 mg PO QDAY BLOOD PRESSURE 04/06/24 paroxetine HCl 40 mg tablet 40 mg PO QDAY MOOD 04/06/24 semaglutide 0.25 mg or 0.5 mg (2 mg/3 mL) subcutaneous pen injector (Ozempic) 0.5 mg subcut WE DIABETES 04/06/24 atorvastatin 80 mg tablet 80 mg PO DAILY CHOLESTEROL 05/12/24 acetaminophen 500 mg tablet 1,000 mg (2 x 500 mg) PO Q6H #100 tabs 05/27/24 apixaban 2.5 mg tablet (Eliquis) 2.5 mg PO BID #28 tabs 05/27/24 oxycodone 5 mg tablet 5 - 10 mg (1 - 2 x 5 mg) PO Q4H PRN pain 7 days #60 tabs 05/27/24
--- NOTE | 2024-05-27 16:03 | NURSING ---
All documentation by nursing staff development coordinator Isrrael Ying reviewed by nursing coordinator Holly Bliss BSN, RN.
== END 2024-05-27 14:19 | disposition home or self-care (01) | DRG 470 ==
LOC: ACINP 14:22 → MS3 14:23
PROVIDERS: Anesthesiology; Admitting Provider Orthopaedic Surgery; Referring Provider Orthopaedic Surgery; Visit Provider Orthopaedic Surgery
PROC: 0SRC0JZ Replacement of Right Knee Joint with Synthetic Substitute, Open Approach (ICD-10-PCS; CPT 27447; principal; 2024-05-26 10:45)
DX: M17.11 Unilateral primary osteoarthritis, right knee (principal); C91.10 Chronic lymphocytic leukemia of B-cell type not having achieved remission; E11.9 Type 2 diabetes mellitus without complications; I10 Essential (primary) hypertension; S02.5XXA Fracture of tooth (traumatic), initial encounter for closed fracture; F12.90 Cannabis use, unspecified, uncomplicated; E78.00 Pure hypercholesterolemia, unspecified; M25.561 Pain in right knee; Z90.710 Acquired absence of both cervix and uterus; Z79.84 Long term (current) use of oral hypoglycemic drugs; Z79.02 Long term (current) use of antithrombotics/antiplatelets; Z79.899 Other long term (current) drug therapy; Z96.611 Presence of right artificial shoulder joint; X58.XXXA Exposure to other specified factors, initial encounter
CPT/HCPCS: 36415; 73560; 80048; 82962; 82985; 83036; 83735; 85025; 85027; 85610; 85730; 86850; 86900; 86901; 87081; 88305; 88311; 93005; 94668; 97116; 97162; 97166; 97530; 97535; C1776; A4216; J2405; J3475